=== PATIENT | male | born 1965 | race American Indian/Alaskan Native ===

== ENCOUNTER 2016-09-17 21:44 | Emergency (ER) | payer OTHER ==
[2016-09-17] MEDS ORDERED: CATAPRES ONE (22:02)
[2016-09-17] MEDS ORDERED: CATAPRES PO ONE (22:06)
[2016-09-17 23:09] LABS: Basophils % (Auto) 0.2 % (0.0-1.8); Hemoglobin 13.4 gm/dl (11.8-15.2); Mean Corpuscular HGB Conc 31 % (32-34); Mean Corpuscular Volume 75 fl (84-94); Platelet Count 223 K/mm3 (140-440); Red Blood Count 5.73 M/mm3 (3.65-5.03); Red Cell Distribution Width 18.4 % (13.2-15.2); White Blood Count 12.5 K/mm3 (4.5-11.0)
[2016-09-17 23:11] LABS: Mean Corpuscular Hemoglobin 24 pg (28-32)
[2016-09-17 23:20] LABS: Anion Gap 17 mmol/L; BUN/Creatinine Ratio 11.76; Blood Urea Nitrogen 20 mg/dL (9-20); Calcium 9.1 mg/dL (8.4-10.2); Carbon Dioxide 27 mmol/L (22-30); Chloride 97.9 mmol/L (98-107); Glucose 104 mg/dL (75-100); Potassium 4.1 mmol/L (3.6-5.0); Sodium 138 mmol/L (137-145)
[2016-09-18] MEDS ORDERED: ZOFRAN IV ONE (00:35)
[2016-09-18] MEDS ORDERED: MORPHINE IV ONE (00:35)
--- NOTE | 2016-09-18 00:56 | Emergency Department Report ---
ED Neck Pain/Injury HPI - General Chief Complaint: Chest Pain Stated Complaint: NECK PAIN/SWEATING Time Seen by Provider: 09/18/16 00:17 Mode of arrival: Ambulatory Limitations: No Limitations - History of Present Illness Initial Comments: 51-year-old male with a past medical history of "borderline hypertension" and obesity presents to the hospital complains of neck pain since New Years [place]. Pain is in the bilateral neck left greater than right, throbbing, constant, worse with movement and palpation. Rated 10/10 intensity. Pain radiates to the posterior head. No preceding trauma or injury reported. Patient have intermittent diaphoresis secondary to pain. Positive associated lightheadedness primary with standing. Denies chest pain, shortness breath, numbness, weakness, or blurred vision. Patient presents here with significantly elevated blood pressure. He states that on his last PMD visit in March he was diagnosed with hypertension prescribed blood pressure medications. Patient did not take medication and has not monitored his blood pressure since initial diagnosis. Pt denies aspirin or Goody powder use PMD: Dr. Andres - Related Data Allergies Allergy/AdvReac Type Severity Reaction Status Date / Time No Known Allergies Allergy Verified 09/17/16 21:57 ED Review of Systems ROS: Stated complaint: NECK PAIN/SWEATING Other details as noted in HPI Comment: All other systems reviewed and negative Other: Constitutional: No fevers chills Eyes: No eye pain visual changes ENT: No ear pain or throat pain Neck: As per HPI Respiratory: Denies cough wheezing shortness of breath Cardiovascular: Denies chest pain, palpitations, syncope GI: Denies abdominal pain, nausea, vomiting, diarrhea : Denies dysuria, urinary frequency, or urgency Musculoskeletal: Denies back pain, joint swelling Skin: Denies rash, lesions, erythema Neurologic: As per HPI Psychiatric: Denies suicidal ideation, hallucinations ED Past Medical Hx - Past Medical History Previous Medical History?: No - Surgical History Past Surgical History?: No - Social History Smoking Status: Never Smoker Substance Use Type: None ED Physical Exam - General Limitations: No Limitations - Other Other exam information: General: No limitations, patient is alert in no acute distress Head exam: Atraumatic, normocephalic Eyes exam: Normal appearance, pupils equal reactive to light, extraocular movements intact ENT: Moist mucous membrane, normal oropharynx Neck exam: Normal inspection, full range of motion, minimal midline tenderness. Bilateral cervical muscle tenderness without meningismus Respiratory exam: Clear to auscultation bilateral, no wheezes, rales, crackles Cardiovascular: Normal rate and rhythm, normal heart sounds Abdomen: Soft, nondistended, and nontender, with normal bowel sounds, no rebound, or guarding Extremity: Full range of motion normal inspection no deformity Back: Normal Inspection, full range of motion, no tenderness Neurologic: Alert, oriented x3, cranial nerves intact, no motor or sensory deficit Psychiatric: normal affect, normal mood Skin: Warm, dry, intact ED Course Vital Signs 09/17/16 09/17/16 09/18/16 21:47 22:06 00:27 Temperature 99.1 F Pulse Rate 60 60 59 L Respiratory 14 Rate Blood Pressure 206/115 206/115 Blood Pressure [Left] O2 Sat by Pulse 99 Oximetry 09/18/16 09/18/16 09/18/16 00:31 00:34 00:35 Temperature Pulse Rate 58 L 58 L Respiratory 21 18 16 Rate Blood Pressure 209/100 Blood Pressure 195/127 [Left] O2 Sat by Pulse 99 99 99 Oximetry 09/18/16 09/18/16 09/18/16 01:01 01:31 02:01 Temperature Pulse Rate 49 L 53 L 54 L Respiratory 16 13 11 L Rate Blood Pressure 175/89 183/98 171/90 Blood Pressure [Left] O2 Sat by Pulse 94 95 98 Oximetry - Reevaluation(s) Reevaluation #1: 09/18/16 00:55 Patient see clonidine 0.2 mg several hours prior to my physical evaluation. Blood pressure still remains elevated. We'll treat pain with morphine and Zofran and it still elevated given additional IV medication. CT head pending. Reevaluation #2: 09/18/16 03:01 Pain decreased from 8 to a 2 with IV morphine and patient remains alert and oriented. Sister at bedside with patient was informed of diagnosis and plan a transfer to [place] - Consultations Consultation #1: 09/18/16 02:49 [place] paged at 2:25am Call back and acceptance by neuro emergency dispatcher Dr. Mayberry at this time. ED Medical Decision Making - Lab Data Result diagrams: 09/17/16 22:45 09/17/16 22:45 Lab Results 09/17/16 09/17/16 09/18/16 Range/Units 22:45 22:45 00:52 WBC 12.5 H (4.5-11.0) K/mm3 RBC 5.73 H (3.65-5.03) M/mm3 Hgb 13.4 (11.8-15.2) gm/dl Hct 43.0 (35.5-45.6) % MCV 75 L (84-94) fl MCH 24 L (28-32) pg MCHC 31 L (32-34) % RDW 18.4 H (13.2-15.2) % Plt Count 223 (140-440) K/mm3 Lymph % (Auto) 9.5 L (13.4-35.0) % [place] % (Auto) 5.2 (0.0-7.3) % Eos % (Auto) 0.0 (0.0-4.3) % Baso % (Auto) 0.2 (0.0-1.8) % Lymph # 1.2 (1.2-5.4) K/mm3 [place] # 0.7 (0.0-0.8) K/mm3 Eos # 0.0 (0.0-0.4) K/mm3 Baso # 0.0 (0.0-0.1) K/mm3 Seg Neutrophils % 85.1 H (40.0-70.0) % Seg Neutrophils # 10.7 H (1.8-7.7) K/mm3 Sodium 138 (137-145) mmol/L Potassium 4.1 (3.6-5.0) mmol/L Chloride 97.9 L (98-107) mmol/L Carbon Dioxide 27 (22-30) mmol/L Anion Gap 17 mmol/L BUN 20 (9-20) mg/dL Creatinine 1.7 H (0.8-1.5) mg/dL Estimated GFR 51 ml/min BUN/Creatinine Ratio 11.76 % Glucose 104 H (75-100) mg/dL Calcium 9.1 (8.4-10.2) mg/dL Troponin T < 0.010 < 0.010 (0.00-0.029) ng/mL - EKG Data -: EKG Interpreted by Me (sinus bradycardia rate 41 with inferior lateral T- wave inversions) - EKG Data When compared to previous EKG there are: previous EKG unavailable - Radiology Data Radiology results: report reviewed (CT head: Acute hemorrhage in the left caudate nucleus. Interventricular hemorrhage involving the left lateral ventricle in the frontal horn and slight hemorrhage and occipital horn posteriorly. 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 Cardiac order for further blood pressure control of systolic less than [address] head results.. Patient be transferred to [facility] Department. Case was discussed with neuro emergency dispatcher and accepted Critical Care Time: No Critical care attestation.: If time is entered above; I have spent that time in minutes in the direct care of this critically ill patient, excluding procedure time. ED Disposition Clinical Impression: Hemorrhage in caudate nucleus, Hypertensive emergency, Noncompliance with medication regimen, Renal insufficiency Disposition: DC/TX ANOTHER TYPE HEALTHCARE Is pt being admited?: No Condition: Stable Time of Disposition: 03:06 ([facility])
--- NOTE | 2016-09-18 02:37 | Cat Scan Report ---
FINAL REPORT PROCEDURE: CT HEAD/BRAIN WO CON TECHNIQUE: Computerized tomography of the head was performed without contrast material. HISTORY: post headache and neck pain,htn COMPARISON: No prior studies are available for comparison. FINDINGS: Skull and scalp: Normal. Paranasal sinuses: Normal. Ventricles and subarachnoid spaces: There is acute hemorrhage identified in the left lateral ventricle frontal horn. Slight hemorrhage identified in the posterior occipital horn of the left ventricle.. Cerebrum: There is a focus of hemorrhage identified in the left the head of the caudate nucleus. This does cause some mass effect upon the frontal horn of the left lateral ventricle. No other evidence of acute hemorrhage is seen. There are areas of hypoattenuation identified in the left basal ganglia consistent with old lacunar infarctions.. Cerebellum and brainstem: There is an area of hypoattenuation in the left gurwinder consistent with old lacunar infarction.. Vasculature: Normal. Comments: None. IMPRESSION: There is acute hemorrhage identified in the head of the left caudate nucleus. There also intraventricular hemorrhage involving the left lateral ventricle in the frontal horn and slight hemorrhage in the occipital horn posteriorly. Old lacunar infarctions of the left basal ganglia in the left gurwinder are identified. The above findings are discussed with the patient's ER physician at the time of dictation 0133 central standard time on 09/18/2016
[2016-09-18] MEDS ORDERED: CARDENE DRIP 40 MG/200 ML 200 ML IV SCH (03:00)
[2016-09-18 04:13] LABS: INR 1.11 (0.87-1.13); Partial Thromboplastin Time 26.1 Sec. (24.2-36.6)
[2016-09-18 04:45] VITALS: BP 126/73
== END 2016-09-18 05:27 | disposition other institution (70) ==
LOC: ED 21:44
DX: I61.0 Nontraumatic intracerebral hemorrhage in hemisphere, subcortical (principal); I10 Essential (primary) hypertension; Z91.14 Patient's other noncompliance with medication regimen; N28.9 Disorder of kidney and ureter, unspecified
CPT/HCPCS: 36415; 70450; 80048; 84484; 85025; 85610; 85730; 93005; 93010; 96365; 96375; 99285; J2270; J2405